=== PATIENT | female | born 1945 | race Caucasian/White ===

== ENCOUNTER 2016-05-26 22:12 | Inpatient (IN) | payer OTHER, MEDICARE ==
[~2016-05-26] VITALS: Ht 165.1 cm; Wt 65.5 kg
[~2016-05-26 22:12] MED LIST: NOMED
[2016-05-26 22:14] VITALS: BP 143/73; PULSE 88; RESP 16; O2SAT 99
--- NOTE | 2016-05-26 22:32 | ED.REPORT ---
HPI-General Illness Date of Service May 26, 2016 ED Provider: Glenn Clark MD Patient is a 70 year old female who presents to the ED after she developed dark diarrhea, dark vomiting, and abdominal pain 3 days ago. She describes the abdominal pain as cramping in her lower abdomen, which always precedes an episode of vomiting or diarrhea. Patient was nauseated for the next 2 days, and has only been able to drink small amounts of water before vomiting. Today the patient has not vomited or had a bowel movement. The patient states that emesis and diarrhea have always been dark, but she has not noted blood. Patient denies dizziness. The patient denies a history of heart burn and she has not previously had a gastric ulcer. The patient's called her PCP after these symptoms began, who ordered outpatient blood work. She was called today and was informed that she is very anemic and was told to present to the ED today for evaluation. Patient has previously had a hysterectomy, but denies prior cholecystectomy. Patient denies any right sided abdominal pain or fever. Nursing Notes Stated Complaint: ANEMIC Chief Complaint: General Complaint Nursing Notes Reviewed: Yes Allergies: Coded Allergies: No Known Allergies (Verified Allergy, Unknown, 05/26/16) Miscellaneous Medications No Historical Medication (No Historical Medication) Ea General Time Seen by MD: 22:32 Chief Complaint Abdominal pain, Diarrhea (dark), Vomiting (dark) Hx Obtained From: Patient Arrived By: Walk-in Sudden in Onset?: No Onset Occurred: 3 days ago Symptom Duration: Waxes and wanes Location: : Abdomen Quality: Cramping, Painful Severity: Current: Moderate Severity: Maximum: Moderate Recent Healthcare: No recent doctor visit, No recent hospitalization Similar Sx Previous: No Past Medical History Past Medical History arthritis Past Surgical History Reports: Hysterectomy, Denies: Cholecystectomy Smoking History Unknown if Ever Smoker Social History Admits to drinking wine daily since age 19, but has stopped drinking for the past few weeks. Alcohol Use: 1-3 per day Other Social History: Good social support, Local resident Ambulatory Status Independent Review of Systems Full Review of Systems Constitutional: Denies: Chills, Fever GI: Reports: Abdominal pain, Bloody/tarry stool, Diarrhea (dark), Nausea, Vomiting (dark) Neurologic: Denies: Dizziness Complete sys rev & neg: except as marked. Physical Exam Vital Signs Vital Signs Date Time Temp Pulse Resp B/P Pulse Ox O2 Delivery O2 Flow Rate FiO2 05/27/16 02:41 84 15 128/58 99 Room Air 05/26/16 22:14 36.6 88 16 143/73 99 Room Air Initial VS: Reviewed Extremities: Vascular intact, Neuro intact Neurologic: Alert, Oriented, Nonfocal Psychiatric: Mood/affect normal, Behavior normal, Normal thought content General/Constitutional: Awake, Alert, No acute distress Distress / Hydration: Positive: Dehydration mild Head / Eyes: Normocephalic, PERRL Conjunctiva / Sclera: Positive: Icteric ENT: Airway patent Mouth: Positive: Mucous membranes dry varicose veins on nose and other changes consistent with someone who drinks daily Neck: Supple, Full range of motion Respiratory / Chest: Breath sounds NL, Breath sounds = bilat, No respiratory distress, No rales, No rhonchi, No wheezing Cardiovascular: Heart rate NL, Regular rhythm, Heart sounds NL Abdomen: Soft, Non-tender, BS normoactive midline scar from hysterectomy Skin: Warm, Dry Interpretation & Diagnostics Lab Results Interpretation Result Diagram: 05/27/16 0515 05/27/16 0515 Test 05/26/16 23:05 05/26/16 23:15 05/26/16 23:25 Prothrombin Time 14.4sec (8.1-12.5) Prothromb Time International Ratio 1.34ratio Urine Color Dark yellow (YELLOW) Urine Appearance Hazy (CLEAR,HAZY) Urine pH 6.0 (5.0-8.0) Urine Specific [place] 1.010 (1.003-1.035) Urine Protein Negativemg/dL (NEG,TRACE) Urine Glucose (UA) Negativemg/dL (NEGATIVE) Urine Ketones Tracemg/dL (NEGATIVE) Urine Occult Blood Negative (NEGATIVE) Urine Nitrite Negative (NEGATIVE) Urine Bilirubin Small (NEGATIVE) Urine Ictotest Positive (Negative) Urine Urobilinogen 2.0mg/dL (NORMAL) Urine Leukocyte Esterase Moderate (NEGATIVE) Urine RBC 0-2/hpf (0-2) Urine WBC 6-10/hpf (0-5) Urine Epithelial Cells Moderate/hpf (NONE-MOD) Urine Crystals None seen (NONE SEEN) Urine Bacteria Few/hpf (NONE-FEW) Urine Hyaline Casts None/lpf (NONE) Urine Granular Casts None seen (NONE SEEN) Urine Waxy Casts None seen (NONE SEEN) Urine Red Blood Cell Casts None seen (NONE SEEN) Urine White Blood Cell Casts None seen (NONE SEEN) Urine Mucus None seen (None Seen) Urine Trichomonas None seen (NONE SEEN) Urine Yeast None (NONE SEEN) Urine Culture Reflexed Indicated Lactic Acid Level 1.9mmol/L (0.4-2.0) Magnesium Level 1.9mg/dL (1.6-2.6) Lipase 147U/L (13-60) Acetaminophen Level < 15.0ug/mL Rx (10-25) Alcohol, Quantitative < 10mg/dL (0-10) ECG Interpretation ECG Interpretation: Sinus rhythm, Rate 80 Time: 23:09 Interpreted by: ED physician Normal ECG Interpretation: No acute ischemic changes CT Abd / Pelvis Interpretation CONCLUSION: No acute findings. Colonic diverticulosis without evidence of acute diverticulitis. Heterogeneous nodular liver possible cirrhosis. Borderline splenomegaly. Radiologist: Elis Coelho MD 05/27/2016 - 1:35:32 AM PST Study type: Abdom CT oral contrast Interpretation / Wet Read by: Interpret - Radiologist Re-Eval/Medical Decision Med Decision/Clinical Course 70-year-old female with coffee-ground emesis and black stools presents anemic at the direction of her doctor. Her anemia is worsened with hydration here. She has no active diarrhea at present, no abdominal pain at present, but may have an ulcer or similar lesion in the upper tract, leading to melena. She is transfused from her low level hemoglobin of 6.8. She is transported now to the PCU for continued monitoring and transfusion. Discussed with GI who will see her this morning and consult Source of Hx: Old records Time of Eval: 03:15 Patient Status: Condition improved, Drinking well without N/V Re-Evaluation/Progress Note: Rechecked the patient, who was informed of the results of her CT scan. She was informed that there was evidence of cirrhosis of her liver. Patient admits that she typically drinks wine daily (since the age of 19), but she has stopped doing so recently. Patient states that she does not miss it. She was advised to stop drink alcohol. Patient was informed that she is very anemic and that she will need blood transfused and admitted to the hospital. Patient understands and agrees with this plan. All questions were addressed. Consultation #1: Referral / Consult Name: Zeenat Alonzo DO Consulted With: Hospitalist Call Returned at: 03:27 Commodity Director: Will see patient, Agrees with eval, Agrees with plan, Accepts admit Note: Spoke with Dr. Alonzo, hospitalist, who agrees to accept admit. Consultation #2: Referral / Consult Name: Janet Jauregui MD Consulted With: On-call physician (JARON) Call Returned at: 05:24 Commodity Director: Will see patient, Agrees with eval, Agrees with plan Note: Spoke with JARON Munroe, about the patient's case. He agrees to consult on the patient. Counseled Regarding: Diagnosis, Lab results, Need for admission Discharge & Departure Primary Impression: GI bleeding GI bleed type/associated pathology: unspecified gastrointestinal hemorrhage type Qualified Code: K92.2 - Gastrointestinal hemorrhage, unspecified Additional Impressions: Liver cirrhosis Hepatic cirrhosis type: alcoholic cirrhosis Ascites presence: without ascites Qualified Code: K70.30 - Alcoholic cirrhosis of liver without ascites Anemia requiring transfusions Disposition: ADMITTED TO HOSPITAL Discharge Condition All VS Reviewed: Yes Condition: Stable Referrals: Marina Fontaine PA-C (PCP) Mikie Attestation Portions of this note were transcribed by Haven Patrick. I, Dr. Clark personally performed the history, physical exam and medical decision-making; I reviewed and confirmed the accuracy of the information in the transcribed note. Signed by: Mikie Navarro, 05/26/2016 0524 copies to: Marina Fontaine PA-C, Christopher W MD May 26, 2016 22:32 Haven Patrick May 26, 2016 22:45 Creatinine 0.91mg/dL (0.57-1.00) Estimat Glomerular Filtration Rate 88mL/min (>59) Glucose Level 98mg/dL (60-99) Lactic Acid Level 1.9mmol/L (0.4-2.0) Calcium Level 9.1mg/dL (8.5-10.1) Magnesium Level 1.9mg/dL (1.6-2.6) Total Bilirubin 2.8mg/dL (0.0-1.2) Aspartate Amino Transf (AST/SGOT) 114U/L (0-50) Alanine Aminotransferase (ALT/SGPT) 40U/L (0-32) Alkaline Phosphatase 69U/L (25-165) Total Protein 7.3g/dL (6.4-8.4) Albumin 3.7g/dL (3.4-5.0) Lipase 147U/L (13-60) Acetaminophen Level < 15.0ug/mL Rx (10-25) Alcohol, Quantitative < 10mg/dL (0-10) Hemoglobin 6.3g/dL (12.0-15.6) Hematocrit 20.6% (35.0-46.0) ECG Interpretation ECG Interpretation: Sinus rhythm, Rate 80 Time: 23:09 Interpreted by: ED physician Normal ECG Interpretation: No acute ischemic changes CT Abd / Pelvis Interpretation CONCLUSION: No acute findings. Colonic diverticulosis without evidence of acute diverticulitis. Heterogeneous nodular liver possible cirrhosis. Borderline splenomegaly. Radiologist: Elis Coelho MD 05/27/2016 - 1:35:32 AM PST Study type: Abdom CT oral contrast Interpretation / Wet Read by: Interpret - Radiologist Re-Eval/Medical Decision Source of Hx: Old records Time of Eval: 03:15 Patient Status: Condition improved, Drinking well without N/V Re-Evaluation/Progress Note: Rechecked the patient, who was informed of the results of her CT scan. She was informed that there was evidence of cirrhosis of her liver. Patient admits that she typically drinks wine daily (since the age of 19), but she has stopped doing so recently. Patient states that she does not miss it. She was advised to stop drink alcohol. Patient was informed that she is very anemic and that she will need blood transfused and admitted to the hospital. Patient understands and agrees with this plan. All questions were addressed. Consultation #1: Referral / Consult Name: Zeenat Alonzo DO Consulted With: Hospitalist Call Returned at: 03:27 Commodity Director: Will see patient, Agrees with eval, Agrees with plan, Accepts admit Note: Spoke with Dr. Alonzo, hospitalist, who agrees to accept admit. Consultation #2: Referral / Consult Name: Janet Jauregui MD Consulted With: On-call physician (GI) Call Returned at: 05:24 Commodity Director: Will see patient, Agrees with eval, Agrees with plan Note: Spoke with Dr. Jauregui GI, about the patient's case. He agrees to consult on the patient. Counseled Regarding: Diagnosis, Lab results, Need for admission Discharge & Departure Primary Impression: GI bleeding GI bleed type/associated pathology: unspecified gastrointestinal hemorrhage type Qualified Code: K92.2 - Gastrointestinal hemorrhage, unspecified Additional Impressions: Liver cirrhosis Hepatic cirrhosis type: alcoholic cirrhosis Ascites presence: without ascites Qualified Code: K70.30 - Alcoholic cirrhosis of liver without ascites Anemia requiring transfusions Disposition: ADMITTED TO HOSPITAL Discharge Condition All VS Reviewed: Yes Condition: Stable Referrals: Marina Fontaine PA-C (PCP) Mikie Attestation Portions of this note were transcribed by Haven Patrick. I, Dr. Clark personally performed the history, physical exam and medical decision-making; I reviewed and confirmed the accuracy of the information in the transcribed note. Signed by: Mikie Navarro, 05/26/2016 0524 copies to: Marina Fontaine PA-C, Christopher W MD May 26, 2016 22:32 Haven Patrick May 26, 2016 22:45
[2016-05-26] MEDS ORDERED: 0.9% Sodium Chloride 1,000 ML IV ONE (22:48)
[2016-05-26] MEDS ORDERED: Ondansetron 2 mg/mL 2 mL Inj IVPUSH ONE (22:50)
[2016-05-26] MEDS ORDERED: Pantoprazole 4 mg/mL 10 mL Inj IVPUSH ONE (22:50)
[2016-05-26] MEDS ORDERED: Iohexol 300 mg/mL 30 mL Inj PO ONE (22:50)
[2016-05-26 23:35] LABS: BASOPHILS % (AUTO) 0.7 % (0-3); EOSINOPHILS % (AUTO) 1.2 % (0-5); MONOCYTES % (AUTO) 16.5 % (4-12); Mean Corpuscular Hemoglobin 24.9 pg (27.0-35.0); Mean Corpuscular Volume 81.7 fL (81-100); NEUTROPHILS % (AUTO) 55.4 % (40-74); Platelet Count 192 bil/L (150-400)
[2016-05-26 23:50] LABS: INR 1.34 ratio
[2016-05-26 23:57] LABS: APPEARANCE,URINE HAZY (CLEAR,HAZY); COLOR,URINE DARK YELLOW (YELLOW); ICTOTEST,URINE POSITIVE (Negative); OCCULT BLOOD,URINE NEGATIVE (NEGATIVE)
[2016-05-27] VITALS (14 sets, daily range): BP systolic 119–146; BP diastolic 55–82; PULSE 66–93; RESP 11–22; O2SAT 96–100
[2016-05-27 00:11] LABS: Lipase 147 U/L (13-60); Magnesium 1.9 mg/dL (1.6-2.6)
[2016-05-27] MEDS ORDERED: Polyethylene Glycol (PEG) 17 Gm Powder PO PRN (03:30)
[2016-05-27] MEDS ORDERED: Pantoprazole Inj 80 MG, Pharmacy To Mix 1 EA in 0.9% Sodium Chloride 80 ML IV ONE ×2 (03:30)
[2016-05-27] MEDS ORDERED: Alum-Mag Hydrox-Simeth 30 mL Suspension PO PRN (03:30)
[2016-05-27] MEDS ORDERED: Ondansetron 2 mg/mL 2 mL Inj IVPUSH PRN (03:30)
[2016-05-27] MEDS ORDERED: Pantoprazole Inj 80 MG in 0.9% Sodium Chloride 80 ML IV SCH ×2 (03:35→04:40)
[2016-05-27] MEDS: 0.9% Sodium Chloride 250 ML IV SCH (03:48)
--- NOTE | 2016-05-27 04:40 | PCM.HPMED ---
Subjective Date of Service May 27, 2016 Primary Provider: Admitting Physician: Primary Care Physician: Marina Fontaine PA-C Attending Physician: Admit Status: From the Emergency Department, [facility] Telemetry Chief Complaint: Anemia History of Present Illness: Patient is a 70 year old female who presents to the ED after she developed dark diarrhea, dark vomiting, and abdominal pain 3 days ago. She describes the abdominal pain as cramping in her lower abdomen, which always precedes an episode of vomiting or diarrhea. Patient was nauseated for the past 2 days, and has only been able to drink small amounts of water before vomiting. Today the patient has not vomited or had a bowel movement. The patient states that emesis and diarrhea have always been dark, but she has not noted bright red blood. Patient denies dizziness. The patient denies a history of heart burn and she has not previously had a gastric ulcer. PCP ordered labs at visit on 05/26/16, and called back last night with results of the low blood count, advising them to go to the ED for further evaluation. Patient has previously had a hysterectomy, but denies prior cholecystectomy. Patient denies any right sided pain, abdominal pain, palpitations, SOB, fevers or chills. No history of similar events in the past, does not take NSAIDs. In the ED, vitals T36.6, P88, RR16, BP143/73, 99%RA. Labs significant for Hgb 7.2 came down to 6.2, Hct 23.6 down to 20.6 during the time in ED. AST/ALT 114/ 40, Lipase 147. Na 133, K3.1. CT abd showed "No acute findings. Colonic diverticulosis without evidence of acute diverticulitis. Heterogeneous nodular liver possible cirrhosis. Borderline splenomegaly." Patient given 80mg IV pantoprazole. Transfused 2 units of PRBC due to acute H/H drop. Admitted for further evaluation and treatment. Review of Systems: Comprehensive ROS reviewed and negative otherwise noted on HPI. Allergies Coded Allergies: No Known Allergies (Verified Allergy, Unknown, 05/26/16) Home Medications None PMH osteo arthritis of neck Surgical History Hysterectomy bone spur off heel Family History Father of emphysema Mother with DM2 Social History Hx Alcohol Use: Yes Alcoholic Drinks Per Day: 2-3 glasses of wine a day since 19yo, quit during 2 pregnancies Hx Substance Use: No Hx Tobacco Use: Yes Smoking Status: Former Smoker (5 years 50 years ago) Living Arrangement: with Family (in [place]) Exam Vital Signs Vital Sign - Last Date Time Temp Pulse Resp B/P Pulse Ox O2 Delivery O2 Flow Rate FiO2 05/27/16 02:41 84 15 128/58 99 Room Air 05/26/16 22:14 36.6 Intake and Output 05/26/16 05/26/16 05/27/16 Cumulative From/Thru 15:00 23:00 07:00 05/26/16 22:14 - 05/26/16 23:44 Intake Total 1000 ml 1000 ml Balance 1000 ml 1000 ml Intake IV Total 1000 ml 1000 ml Exam GEN: Alert and oriented x3, NAD, appears younger than stated age HEENT: NC/AT, PERRL, EOMI, icteric sclera, moist mucous membranes, poor dentition Neck: Supple with full ROM CV: RRR, no murmurs, rubs or gallops, peripheral pulses intact and NL Lungs: CTAB, normal breath sounds bilaterally Abd: soft, non-tender, no organomegaly, no fluid wave, no spider angiomas Ext: no edema, cyanosis, or clubbing, no asterixis Skin: no jaundice or redness of palms, no ecchymosis Neuro: CN II-XII grossly intact, no focal deficit Psych: Normal mood and affect, normal speech Lab and Diagnostics Result Diagram: 05/27/16 0240 05/26/16 2325 X-Rays, CTs and MRIs CONCLUSION: No acute findings. Colonic diverticulosis without evidence of acute diverticulitis. Heterogeneous nodular liver possible cirrhosis. Borderline splenomegaly. Radiologist: Elis Coelho MD 05/27/2016 - 1:35:32 AM [facility] Study type: Abdom CT oral contrast Interpretation / Wet Read by: Interpret - Radiologist 12-lead ECG ECG Interpretation: Sinus rhythm, Rate 80 Time: 23:09 Interpreted by: ED physician Normal ECG Interpretation: No acute ischemic changes Assessment & Plan Patient is a 70 year old female who presents to the ED after she developed dark diarrhea, dark vomiting, and abdominal pain 3 days ago. She describes the abdominal pain as cramping in her lower abdomen, which always precedes an episode of vomiting or diarrhea. Found to be anemic on recent labs, sent to ED by PCP. Upper GI bleed, present on admission. Acute. - most likely to be from esophageal varices, although cannot rule out PUD, gastritis, portal hypertensive gastropathy, angiodysplasias - 2 units of PRBC given, PPI started in ED - PPI and octreotide ggt - check H/H Q6H - transfuse if Hgb <7, maintain Hbg between 7-8 - telemetry - NPO - patient does not have ascites, or abdominal pain, will hold off prophylactic antibiotics for possible SBP - GI to see patient in am Elevated liver enzymes, present on admission. - AST more than double ALT, most likely to be from alcoholic hepatitis, cannot rule out other liver etiologies (i.e. viral hepatitis, ARREDONDO, autoimmune) - Hepatitis panel pending - CMP in am Anion gap metabolic acidosis, present on admission. - AG 16, Lactic acid normal - most likely due to ketoacidosis from alcohol abuse Hypokalemia, present on admission. - K 3.1, currently transfusing 2 units of PRBC, will recheck in am Possible cirrhosis visualized on CT, present on admission. - Child-Nayak score of 6, Class A, MELD score of 17, Discriminant Function score of 13.8 with good prognosis, no steroid needed Mildly elevated lipase, present on admission. - most likely due to chronic pancreatitis with alcohol use Alcoholism, chronic - patient states she has not been drinking her usual 3 glasses of wine for the past 2-3 weeks, serum alcohol level <10, CIWA deemed not necessary at this time - discussed cessation - monitor for alcohol withdrawal Osteoarthritis of neck - patient does not take any medication for this PRNs - avoid APAP - Bowel regimen as needed - Antiemetic as needed Patient admitted under inpatient status with expected length of stay greater than 2 midnights due to severity of presenting symptoms, risk of adverse event, and complexity of treatment plan. Pain Evaluation: Adequate Pain Control GI Prophylaxis: Proton Pump Inhibitor VTE Prophylaxis: SCDs, Other (GI bleed) Resuscitation Status: CPR: Attempt Resuscitation Attending Statement The patient was seen and examined together with house staff on 05/27/2016 and I agree with the history, exam and plan as outlined in the note above. Isa Domingo DO May 27, 2016 03:34 Zeenat Alonzo DO May 27, 2016 06:16
[2016-05-27] MEDS ORDERED: Octreotide Inj 500 MCG in 0.9% Sodium Chloride 99 ML IV SCH (05:00)
[2016-05-27 05:27] LABS: BASOPHILS % (AUTO) 0.7 % (0-3); MONOCYTES % (AUTO) 17.8 % (4-12); Mean Corpuscular Hemoglobin 26.5 pg (27.0-35.0); Mean Corpuscular Volume 81.8 fL (81-100); NEUTROPHILS % (AUTO) 53.9 % (40-74); Platelet Count 164 bil/L (150-400)
[2016-05-27] MEDS ORDERED: [UNRECOGNIZED DRUG - OTHER] IV ONE (06:25)
[2016-05-27] MEDS ORDERED: KCL IV ONE (06:25)
--- NOTE | 2016-05-27 06:34 | NUR ---
Admission Pt transferred from the ED at 0530. Report taken from CHARISMA Mukherjee. Pt alert and oriented x3. Able to transfer independently from w/c to bed. Nursing assessment unremarkable. Two patent IV accesses in the left arm. Pt received two units of PRBC. Full admission completed. Pt accompanied by spouse. All questions answered.
[2016-05-27] MEDS ORDERED: KCl 20 mEq/250 mL D5W (Peripheral Line) IV ONE ×2 (08:20)
--- NOTE | 2016-05-27 08:21 | DRSVH ---
PROCEDURE: CT ABDOMEN AND PELVIS WITH CONTRAST ([id number]) INDICATIONS: nausea, hematemesis, jaundice TECHNIQUE: After the administration of oral and intravenous contrast, 5 mm thick sections acquired from the diap hragms to the symphysis. 5 mm thick coronal and sagittal reformats were performed. For radiation do se reduction, the following was used: automated exposure control, adjustment of mA and/or kV accordi ng to patient size. COMPARISON: None. FINDINGS: Image quality: Excellent. ABDOMEN: Lung bases: Lung bases are clear. Heart size is normal. Solid organs: Liver and spleen are normal in enhancement. Liver has nodular margins suggesting hepat ic cirrhosis; please correlate with clinical and laboratory data. Spleen is mildly enlarged measuring 13.1 cm in the longitudinal axis. Small venous varices noted adjacent to the splenic hilum suggestin g portal hypertension. Gallbladder is within normal limits. Biliary system is non-dilated. Pancreas enhances normally. No adrenal nodules. Kidneys are normal in size and enhancement, without hydrone phrosis. Peritoneum and bowel: Stomach, small bowel, and colon loops are normal in caliber and wall thickness . Scattered diverticuli noted in the colon without evidence of diverticulitis. No free fluid or air. The appendix is normal. Nodes and vessels: No retroperitoneal or mesenteric adenopathy. Aorta and inferior vena cava are no rmal in caliber. Scattered atherosclerotic calcifications in the abdominal pelvic vasculature. Miscellaneous: No ventral hernias. PELVIS: Genitourinary: Bladder wall thickness is normal. Miscellaneous: No inguinal hernias or adenopathy. Bones: No suspicious bony lesions. No vertebral body compression fractures. Spine degenerative disc disease and facet arthropathy are noted. Convex left curvature of the lumbar spine is noted. IMPRESSION: 1. Nodular liver suggesting hepatic cirrhosis. Please correlate with clinical laboratory findings. 2. Mild splenomegaly. 3. Prominent venous varices at the splenic hilum and adjacent to the gastroesophageal junction concer julito for sequela of portal hypertension. Dictated by: Marcela Ng MD, PhD on 05/27/2016 at 8:15 Approved by: Marcela Ng MD, PhD on 05/27/2016 at 8:20
[2016-05-27] MEDS: cefTRIAXone Inj 2,000 MG in Dextrose 5% Minibag Plus 50 ML IV SCH (09:22)
--- NOTE | 2016-05-27 12:22 | PCM.PNMED ---
Subjective Date of Service May 27, 2016 Subjective Alicja Shi is a 70 year old female who presents to the ED after she developed dark diarrhea, dark vomiting, and abdominal pain 3 days ago. Found to be anemic on recent labs and sent to the ED by PCP. Admitted for upper GI bleed. Hospital day 2. Overnight: Patient was admitted overnight and started on octreotide and Protonix drip. She received 2 units PRBCs with appropriate improvement in her hemoglobin and hematocrit. Rested comfortably. Today: Patient denies any pain, nausea, vomiting, abdominal pain, dizziness, or symptoms of heartburn. Patient has not eaten since admission. EGD planned for this afternoon. Remaining review of systems negative. Exam Vital Signs Vital Sign - Last Date Time Temp Pulse Resp B/P Pulse Ox O2 Delivery O2 Flow Rate FiO2 05/27/16 05:53 88 05/27/16 05:17 36.4 22 146/73 99 Room Air Intake and Output 05/26/16 05/26/16 05/27/16 Cumulative From/Thru 15:00 23:00 07:00 05/26/16 22:14 - 05/27/16 06:09 Intake Total 1000 ml 1000 ml Output Total 0 ml 0 ml Balance 1000 ml 1000 ml Intake Oral 0 ml 0 ml IV Total 1000 ml 1000 ml Output Urine Total 0 ml 0 ml Exam GEN: Alert and oriented x3, NAD, appears younger than stated age HEENT: NC/AT, PERRL, EOMI, icteric sclera, moist mucous membranes, poor dentition Neck: Supple with full ROM CV: RRR, no murmurs, rubs or gallops, peripheral pulses intact and NL Lungs: CTAB, normal breath sounds bilaterally Abd: soft, non-tender, no organomegaly, no fluid wave, no spider angiomas Ext: no edema, cyanosis, or clubbing, no asterixis Skin: no jaundice or redness of palms, no ecchymosis Neuro: CN II-XII grossly intact, no focal deficit Psych: Normal mood and affect, normal speech Lab and Diagnostics Result Diagram: 05/27/1651405/27/16514 X-Rays, CTs and MRIs CONCLUSION: No acute findings. Colonic diverticulosis without evidence of acute diverticulitis. Heterogeneous nodular liver possible cirrhosis. Borderline splenomegaly. Radiologist: Elis Coelho MD 05/27/2016 - 1:35:32 AM [facility] Study type: Abdom CT oral contrast Interpretation / Wet Read by: Interpret - Radiologist 12-lead ECG Sinus rhythm, Rate 80 Assessment & Plan Alicja Shi is a 70 year old female who presents to the ED after she developed dark diarrhea, dark vomiting, and abdominal pain 3 days ago. Found to be anemic on recent labs and sent to the ED by PCP. Admitted for upper GI bleed. Hospital day 2. 1. Upper GI bleed, present on admission. Active. - Etiology is likely esophageal varices, although cannot rule out PUD, gastritis , portal hypertensive gastropathy, angiodysplasias - On admission hemoglobin and hematocrit 6.3 and 20.6. - 2 units of PRBC given overnight between 05/26-05/27 - Protonix drip per protocol. - Octreotide drip per protocol. - H/H stable this morning at 9.8 and 30.1. - Transfuse if Hgb <7, maintain Hbg between 7-8 - Continue to monitor on telemetry. - Patient to remain NPO. EGD planned for this afternoon. - Ceftriaxone started 05/27 for prophylaxis. - Gastroenterology consulted. Appreciate time and recommendations. 2. Elevated liver enzymes, present on admission. Unknown chronicity. - AST more than double ALT, most likely to be from alcoholic hepatitis, cannot rule out other liver etiologies (i.e. viral hepatitis, ARREDONDO, autoimmune) - Hepatitis panel pending. - Repeat CMP in the morning. 3. Hypokalemia, present on admission. active. - On admission potassium 3. 1 repeat this morning 3.5. - Potassium IV rider ordered. - Repeat CMP in the morning. 4. Possible cirrhosis visualized on CT, present on admission. - Child-Nayak score of 6, Class A, MELD score of 17, Discriminant Function score of 13.8 with good prognosis, no steroid needed - Will need outpatient follow-up. 5. Mildly elevated lipase, present on admission. - On admission lipase 147. - Most likely due to chronic pancreatitis with alcohol use. - Patient denies abdominal pain. 6. Alcohol use disorder, present on admission. Chronic. - Patient states she has not been drinking her usual 3 glasses of wine for the past 2-3 weeks, serum alcohol level <10, CIWA deemed not necessary at this time. - Discussed cessation. - Monitor for alcohol withdrawal. 7. Osteoarthritis of neck - Patient does not take any medication for this PRNs - avoid APAP - Bowel regimen as needed - Antiemetic as needed Disposition: Hemoglobin and hematocrit stable after transfusion. EGD planned for this afternoon. Discharge pending results and further treatment. GI Prophylaxis: Proton Pump Inhibitor (Protonix drip) VTE Prophylaxis: SCDs, Other (GI bleed) VTE Mechanical Devices: Intermittant Pneumatic CD Resuscitation Status: CPR: Attempt Resuscitation Attending Statement patient seen and examined with Dr Brumfield,I agree with history,exam ,assessment and plan as outlined above DAYANA BRUMFIELD DO May 27, 2016 07:28 Jer Ramirez MD May 27, 2016 13:54
--- NOTE | 2016-05-27 13:00 | NUR ---
To endo pt ordered for endoscopy. pt agreeable. pt transported via gurney. telemetry notified. pt left unit at 1302.
[2016-05-27] MEDS: Lactated Ringer's 1,000 ML IV ONE ×2 (13:04→13:29)
--- NOTE | 2016-05-27 13:06 | PCM.HPANE ---
Patient Data Date of Service: May 27, 2016 Surgeon Admitting Provider:Zeenat Alonzo DO Attending Provider:Zeenat Alonzo DO Primary Care Physician:Marina Fontaine PA-C Other Provider: Reason for Visit Upper Gi Bleeding Ht/WT & BMI Height (Feet): 5 Height (Inches): 5.00 Weight (Kilograms): 65.450 Body Mass Index 24.04 Allergies Coded Allergies: No Known Allergies (Verified Allergy, Unknown, 05/26/16) Past Anesthesia History Anesthesia History: Denies:: Anesthesia Reactions Diabetes History Hx Diabetes?: No MRSA MRSA: No Medications Reported Medications No Historical Medication Ea 09/08/10 History History of ENT Problems?: No HEENT History: Positive for:: Cataracts (surgery) Denies:: Dysphagia Glaucoma Hearing Problem Sinus Problem Hx of Heart Problems?: No Cardiovascular History: Denies:: Cardiac Surgery Chest Pain Congestive Heart Failure Edema Heart Murmur Hypertension Irregular Heartbeat Pacemaker Thrombophlebitis Hx of Respiratory Problem?: No Respiratory History: Denies:: Asthma COPD Chest Surgery Dyspnea Emphysema Hemoptysis Pneumonia Tuberculosis Hx Neurologic Problems?: No Neurological History: Denies:: Alzheimer's Disease CVA Dementia Dizziness Headaches Parkinson's Disease Seizures Hx of GI Problems?: Yes Gastrointestinal History: Positive for:: Gastrointestinal Bleeding (suspicious , current chief complaint) Denies:: Diverticulitis Gastroesphageal Reflux Heartburn Hepatitis Hiatal Hernia Rectal Bleeding (post colonoscopy years prior) Hx of Problems?: No Genitourinary History: Denies:: HX of Hemodialysis Kidney Stones Urinary Tract Infection HX of Peritoneal Dialysis: No Female Hx: Denies:: Currently Endometriosis Pelvic Inflammatory Problems with Breasts? Skin History: Denies:: History Skin Disorders? Hx Musculoskeletal Problems?: No Musculoskeletal History: Denies:: Back Injury Joint Replacement Musculoskeletal Trauma Hx of Psycho/Social Problems?: No Psycho Social History: Denies:: Anxiety Bipolar Disorder Hx Depression Suicide Attempt Hx Surgeries?: Yes Hx Any Other Health Problems?: No Other History: Positive for:: Hospitalization (hysterectomy, bone spur surgery ) Denies:: Cancer Endocrine Disease Thyroid Disease History Blood Transfusions: Positive for:: Accept Blood Products? Blood Transfusions Denies:: Blood Transfuse Reaction Hx Diabetes: No Hx Alcohol Use: Yes (couple of glasses of wine per night)Alcoholic Drinks Per Day: 2-3 glasses of wine a day since 19yo, quit during 2 pregnancies Hx Substance Use: No Smoking Status: Former Smoker (5 years 50 years ago) Have You Smoked inLast 12 mo: No Stop/Bang Treated for Sleep Apnea?: No Do You Have a CPAP Machine?: No S-Snoring: Do You Snore Loudly: Yes T-Tired: feel tired, fatigued: No O-Obsered: Observed not breath: No P-Blood Pressure: treated: No B- Body Mass Index > 35 kg/m2: No A- Age over 50: Yes N- Neck Large Circumference: No G- Gender Male: No NIGHAT Total Score: 1 NIGHAT Risk Assessment: Low Risk, <3 Yes Risk Assessment Category Category 1A: Patient has history of documented sleep apnea, and HAS NOT received any narcotic, sedative or anesthesia administration during this stay. Category 1B: Patient has history of documented sleep apnea, and HAS received any narcotic , sedative or anesthesia administration during this stay Category 2: Patient has SUSPECTED Obstructive Sleep Apnea, and HAS received any narcotic , sedative or anesthesia administration during this stay. Category 3: Patient has SUSPECTED Obstructive Sleep Apnea and HAS NOT received narcotic, sedative or anesthesia administration during this stay. Category 4: Outpatient in Procedural Areas with known sleep apnea or who screen positive for High Risk via the STOP/BANG questionnaire. Exam Exam Vital Signs Vital Signs Date Time Temp Pulse Resp B/P Pulse Ox O2 Delivery O2 Flow Rate FiO2 05/27/16 11:58 37.0 70 18 131/69 96 Room Air 05/27/16 10:11 87 05/27/16 07:28 36.9 93 16 139/78 100 Room Air 05/27/16 05:53 88 05/27/16 05:17 36.4 88 22 146/73 99 Room Air 05/27/16 05:15 36.4 88 20 146/73 General Appearance: Alert, Oriented X3, Cooperative HEENT/AIRWAY: MP 2, Neck Movement (Full), Mouth Opening (Wide) Lungs: Clear to Auscultation, Normal Air Movement Heart: Regular Rate/Rhythm, Normal S1, Normal S2 Meds/Labs/Diagnostics Admission Meds Current Medications Sodium Chloride (Normal Saline) 1,000 ml @ 0 mls/hr Q0M ONCE IV Last administered on 05/26/16t 23:44; Start 05/26/16 at 22:48; Stop 05/26/16 at 22:53; Status DC Pantoprazole (Protonix Inj) 80 mg ONCE ONCE IVPUSH Last administered on 23:44; Start 05/26/16 at 22:50; Stop 05/26/16 at 22:53; Status DC Ondansetron HCl (Zofran Inj) 8 mg ONCE ONCE IVPUSH Last administered on 23:44; Start 05/26/16 at 22:50; Stop 05/26/16 at 22:53; Status DC Iohexol 9000 mg 9,000 mg ONCE ONCE PO Last administered on 05/26/16 23:44; Start 05/26/16 at 22:50; Stop 05/26/16 at 22:53; Status DC Sodium Chloride 250 ml @ 10 mls/hr Q24H IV Last administered on 05/27/16 03:48 ; Start 05/27/16 at 03:10 Pantoprazole/ Miscellaneous/ Sodium Chloride (Protonix Inj/ Pharmacy To Mix/ Normal Saline) 100 ml @ 10 mls/hr ONCE ONCE IV Last administered on 05/27/16 04:23; Start 05/27/16 at 03:30; Stop 05/27/16 at 13:29 Octreotide Acetate 50 mcg 50 mcg ONCE ONCE IVPUSH Last administered on 04:24; Start 05/27/16 at 03:30; Stop 05/27/16 at 03:32; Status DC Pantoprazole 80 mg/Sodium Chloride 100 ml @ 10 mls/hr Q10H IV Last administered on 05/27/16 03:35; Start 05/27/16 at 03:35 Octreotide Acetate 500 mcg/ Sodium Chloride 100 ml @ 10 mls/hr Q10H IV Last administered on 05/27/16 06:02; Start 05/27/16 at 05:00 Ceftriaxone Sodium 2000 mg/ Dextrose/Water 50 ml @ 100 mls/hr Q24H IV Last administered on 05/27/16 09:22; Start 05/27/16 at 08:00 Potassium Chloride/Dextrose/ Water (Potassium Chloride Inj/D5W) 260 ml @ 130 mls/hr ONCE ONCE IV Last administered on 05/27/16 09:22; Start 05/27/16 at 08: 20; Stop 05/27/16 at 10:19; Status DC Labs Test 05/26/16 23:05 05/26/16 23:15 05/26/16 23:25 05/27/16 05:15 Prothrombin Time 14.4sec (8.1-12.5) Prothromb Time International Ratio 1.34ratio Urine Color Dark yellow (YELLOW) Urine Appearance Hazy (CLEAR,HAZY) Urine pH 6.0 (5.0-8.0) Urine Specific [place] 1.010 (1.003-1.035) Urine Protein Negativemg/dL (NEG,TRACE) Urine Glucose (UA) Negativemg/dL (NEGATIVE) Urine Ketones Tracemg/dL (NEGATIVE) Urine Occult Blood Negative (NEGATIVE) Urine Nitrite Negative (NEGATIVE) Urine Bilirubin Small (NEGATIVE) Urine Ictotest Positive (Negative) Urine Urobilinogen 2.0mg/dL (NORMAL) Urine Leukocyte Esterase Moderate (NEGATIVE) Urine RBC 0-2/hpf (0-2) Urine WBC 6-10/hpf (0-5) Urine Epithelial Cells Moderate/hpf (NONE-MOD) Urine Crystals None seen (NONE SEEN) Urine Bacteria Few/hpf (NONE-FEW) Urine Hyaline Casts None/lpf (NONE) Urine Granular Casts None seen (NONE SEEN) Urine Waxy Casts None seen (NONE SEEN) Urine Red Blood Cell Casts None seen (NONE SEEN) Urine White Blood Cell Casts None seen (NONE SEEN) Urine Mucus None seen (None Seen) Urine Trichomonas None seen (NONE SEEN) Urine Yeast None (NONE SEEN) Urine Culture Reflexed Indicated Lactic Acid Level 1.9mmol/L (0.4-2.0) Magnesium Level 1.9mg/dL (1.6-2.6) Lipase 147U/L (13-60) Acetaminophen Level < 15.0ug/mL Rx (10-25) Alcohol, Quantitative < 10mg/dL (0-10) White Blood Count 5.7th/mm3 (3.8-10.1) Red Blood Count 3.74mil/mm3 (3.90-5.20) Mean Corpuscular Volume 81.8fL (81-100) Mean Corpuscular Hemoglobin 26.5pg (27.0-35.0) Mean Corpuscular Hemoglobin Concent 32.4% (32.0-37.0) Red Cell Distribution Width 17.2% (12.3-15.4) Platelet Count 164bil/L (150-400) Neutrophils (%) (Auto) 53.9% (40-74) Lymphocytes (%) (Auto) 26.4% (14-46) Monocytes (%) (Auto) 17.8% (4-12) Eosinophils (%) (Auto) 1.0% (0-5) Basophils (%) (Auto) 0.7% (0-3) Sodium Level 132mEq/L (134-144) Potassium Level 3.5mEq/L (3.5-5.2) Chloride Level 95mEq/L (97-108) Carbon Dioxide Level 21mmol/L (18-29) Blood Urea Nitrogen 20mg/dL (8-27) Creatinine 0.86mg/dL (0.57-1.00) Estimat Glomerular Filtration Rate 94mL/min (>59) Glucose Level 89mg/dL (60-99) Calcium Level 8.8mg/dL (8.5-10.1) Phosphorus Level 5.1mg/dL (2.5-4.9) Total Bilirubin 3.3mg/dL (0.0-1.2) Aspartate Amino Transf (AST/SGOT) 114U/L (0-50) Alanine Aminotransferase (ALT/SGPT) 38U/L (0-32) Alkaline Phosphatase 66U/L (25-165) Total Protein 7.1g/dL (6.4-8.4) Albumin 3.5g/dL (3.4-5.0) Test 05/27/16 08:15 Hemoglobin 9.8g/dL (12.0-15.6) Hematocrit 30.1% (35.0-46.0) Plan Impression Patient chart reviewed, patient interviewed and anesthestic plan with risks, benefits, and alternatives discussed, and informed consent obtained. NPO Status: > 8 hours ASA Physical Status: ASA2 Mod Systemic Disease Anesthetic Plan: MAC Bene/Risks/Altern/Consents: Yes HP Complete Prior to Induction: Yes Abdirahman Lorenzo MD May 27, 2016 12:51
--- NOTE | 2016-05-27 13:27 | PCM.ANEP1 ---
Post Anesthesia Phase 1 PACU Phase 1 Assessment Date of Service: May 27, 2016 Vital Signs See anesthetic record for Phase 2 vitals Vital Signs Date Time Temp Pulse Resp B/P Pulse Ox O2 Delivery O2 Flow Rate FiO2 05/27/16 13:08 84 16 146/82 99 Room Air 05/27/16 11:58 37.0 70 18 131/69 96 Room Air 05/27/16 10:11 87 05/27/16 07:28 36.9 93 16 139/78 100 Room Air 05/27/16 05:53 88 Anesthetic Administered: MAC CORTEZ's with Equal Strength: Yes Pain: No Nausea or Vomiting: No Oxygen Delivery: Nasal Cannula Lungs: Normal Air Movement Abdirahman Lorenzo MD May 27, 2016 13:27
--- NOTE | 2016-05-27 13:28 | PCM.ANEP2 ---
Post Anesthesia Evaluation ASA/CMS Post Anesthesia Date of Service: May 27, 2016 VS in Patient's Normal Range?: Yes Resp Stable; Airway Patent?: Yes CV Function & Hydration Stable: Yes Mental Status Recovered?: Yes Pain control Satisfactory?: Yes N/V Control Satisfactory?: Yes Abdirahman Lorenzo MD May 27, 2016 13:28
--- NOTE | 2016-05-27 13:50 | NUR ---
Return from Endo pt return to room 2008, alert and oriented. denies pain. at bedside. telemetry informed of return.
--- NOTE | 2016-05-27 13:59 | ENDO ---
[address] [address] ENDOSCOPY PROCEDURE PATIENT: SERG BRUSH : 1945 MR#: [id number] ADMIT: 05/27/2016 JOB ID: [id number] PROCEDURE: Esophagogastroduodenoscopy. INDICATION: Hematemesis and melena. ANESTHESIA: Please see anesthesia report for details regarding patient's ASA classification, Mallampati score, and medications. INSTRUMENT USED: GIF H 180 J. PROCEDURE DETAILS: After informed consent was obtained, the patient was brought into the GI suite where she was placed on oxygen via nasal cannula and monitored with continuous pulse oximeter, telemetry, and blood pressure monitoring. A time-out was performed, then she was placed in the left lateral decubitus position and medications were administered for sedation. A bite block was placed and then the standard esophagogastroduodenoscopy scope was inserted through the bite block and advanced under direct visualization to the second portion of the duodenum without difficulty. FINDINGS: 1. Normal appearing duodenal bulb, first and second portion. No old or fresh blood was seen on exam. 2. Normal appearing pylorus. In the antrum, at the nine o'clock and at the 3 o'clock position, there were 2 superficial ulcers that measured approximately 3-4 mm each with exudate. Exudate was removed with irrigation. The ulcers were clean based. Multiple biopsies were obtained from the ulcer sites. 3. The mucosa otherwise in the antrum and body of the stomach had a mosaic appearance, consistent with portal gastropathy. 4. Retroflexed views in the gastric body revealed a normal-appearing cardia and fundus. No gastric varices were appreciated. 5. Multiple random biopsies were obtained throughout the antrum and body of the stomach. 6. The GE junction was at approximately 41 cm and was irregular. There was surrounding erythema suggestive of esophagitis which appeared to be mild to moderate. The remainder of the esophagus was otherwise unremarkable. No esophageal varices were appreciated. IMPRESSION: 1. Two superficial antral ulcers. 2. Portal gastropathy. 3. Mild to moderate esophagitis with an irregular gastroesophageal junction. RECOMMENDATIONS: 1. Avoid NSAIDs and anticoagulants. 2. Continue PPI for 12 weeks. 3. Recommend repeat EGD in 12 weeks. 4. Recommend chronic liver disease workup to rule out other etiologies for the patient's underlying cirrhosis. 5. Alcohol cessation. 6. Await biopsy results. COMPLICATIONS: None. ESTIMATED BLOOD LOSS: Less than 5 mL. MTDD
[2016-05-27] MEDS ORDERED: Lidocaine PF 1% 30 mL Inj ONE (14:56)
[2016-05-27] MEDS ORDERED: Propofol 10,000 mCg/mL 20 mL Inj ONE (14:56)
--- NOTE | 2016-05-27 16:31 | NUR ---
Social work - Brief note Alicja Shi is a 70 yr old admitted for GI bleed. EMR reviewed: Pt has [employer], PCP is Marina Fontaine PA-C. [employer] attempted to meet with pt - pt off floor for endoscopy. Pt is independent at baseline - lives with [place]. EMR identifies that she drinks ETOH daily, has cirrhosis and will need CD assessment for alcohol treatment. [employer] will continue to follow Plan: Home with TOMI Newman
[2016-05-28 00:38] VITALS: BP 138/80; PULSE 71; RESP 16; O2SAT 98
[2016-05-28 02:58] LABS: BASOPHILS % (AUTO) 1.2 % (0-3); EOSINOPHILS % (AUTO) 1.9 % (0-5); MONOCYTES % (AUTO) 17.1 % (4-12); Mean Corpuscular Hemoglobin 26.1 pg (27.0-35.0); Mean Corpuscular Volume 82.4 fL (81-100); NEUTROPHILS % (AUTO) 44.1 % (40-74); Platelet Count 152 bil/L (150-400)
[2016-05-28] MEDS: 0.9% Sodium Chloride 250 ML IV SCH (03:10)
[2016-05-28 03:19] LABS: INR 1.44 ratio
[2016-05-28 03:22] LABS: Magnesium 1.6 mg/dL (1.6-2.6)
[2016-05-28 04:42] VITALS: BP 134/80; PULSE 67; RESP 16; O2SAT 95
[2016-05-28 06:07] VITALS: PULSE 65
[2016-05-28] MEDS ORDERED: Pantoprazole 40 mg ER24 Tablet PO SCH (06:30)
--- NOTE | 2016-05-28 07:28 | NUR ---
Rest/PO Intake/Activity Pt was able to rest through most of the evening shift Pt tolerated clear liquid diet with no N/V. Pt ambulated in the room to the bathroom independently with a steady gait and did not c/o dizziness or weakness.
[2016-05-28 08:59] VITALS: BP 124/87; PULSE 69; RESP 16; O2SAT 99
[2016-05-28 09:07] LABS: Hepatitis A Antibody IgM Positive (Negative); Hepatitis B Core Antibody IgM Negative (Negative)
[2016-05-28] MEDS: cefTRIAXone Inj 2,000 MG in Dextrose 5% Minibag Plus 50 ML IV SCH (09:07)
--- NOTE | 2016-05-28 09:34 | PCM.DIMED ---
Discharge Instructions Date of Service May 28, 2016 Dates of Hospitalization May 27, 2016 at 03:54 Discharge Diagnosis Discharge Diagnosis #. Upper GI bleed, present on admission. Active. -due to super superficial gastric ulcers # H.pylori infection,poa,active -please continue amoxicillin 1 g by mouth twice a day and clarithromycin 500 mg by mouth twice a day for 2 weeks. Continue Protonix 40 mg by mouth twice a day for 3 months. # Anemia requiring transfusion, due to GI bleeding, improved # UTI ,poa , active #. Elevated liver enzymes, present on admission. Unknown chronicity. - Hepatitis panel pending. #. cirrhosis visualized on CT, present on admission. #. Alcohol use disorder, present on admission. Chronic. - Discussed cessation. #. Osteoarthritis of neck Test Results Endoscopy report IMPRESSION: 1. Two superficial antral ulcers. 2. Portal gastropathy. 3. Mild to moderate esophagitis with an irregular gastroesophageal junction. RECOMMENDATIONS: 1. Avoid NSAIDs and anticoagulants. 2. Continue PPI for 12 weeks. 3. Recommend repeat EGD in 12 weeks. 4. Recommend chronic liver disease workup to rule out other etiologies for the patient's underlying cirrhosis. 5. Alcohol cessation. 6. Await biopsy results. COMPLICATIONS: None. Janet Jauregui MD 05/27/16 1326 Diet Low fat, Low Sodium Activity Limited until seen by PCP Call your provider Fever or Chills, Shortness of breath, Bleeding, Chest pain, Vomitting, Excessive diarrhea, Weakness (unilateral) Patient Instructions You were hospitalized due to upper GI bleeding due to superficial gastric ulcers which is positive for H. pylori. Please continue amoxicillin 1 g by mouth twice a day and clarithromycin 500 mg by mouth twice a day for 2 weeks . Please continue Protonix 40 mg by mouth twice a day for 3 months. Please follow -up with GI for repeat endoscopy in 3 months. You also was found to have cirrhosis of liver and portal hypertension probably due to alcohol. Please stop drinking alcohol. Hepatitis panel is pending, please follow-up results with PCP. You also had anemia which required transfusion of blood. Follow-up plan Please follow-up with PCP in 1 week. Please follow Gi Dr. jauregui in 3- 4 weeks. Follow-up Provider: Marina Fontaine PA-C Follow-up with PCP in: 1 week Provider: Janet Jauregui MD Follow-up in: 3 weeks Jer Ramirez MD May 28, 2016 09:34
[2016-05-28 10:11] VITALS: PULSE 72
[2016-05-28] MEDS ORDERED: OMEP20TA86 PO (10:23)
[2016-05-28] MEDS ORDERED: AMOX500T2 PO ×2 (10:23→10:35)
[2016-05-28] MEDS ORDERED: CLR500T PO (10:23)
[2016-05-28] MEDS ORDERED: PANT20T PO (10:35)
[2016-05-28] MEDS ORDERED: CLAR500T PO (10:35)
--- NOTE | 2016-05-28 11:37 | PCM.DC.MED ---
Discharge Summary Date of Service May 28, 2016 Dates of Hospitalization Date of Hospital Admission May 27, 2016 at 03:54 Date of Discharge: May 28, 2016 Providers: Admitting Physician: Zeenat Alonzo DO Primary Care Physician: Marina Fontaine PA-C Attending Physician: Zeenat Alonzo DO Diagnosis at Time of Discharge Diagnosis at Time of Discharge #. Upper GI bleed, present on admission. Active. -due to super superficial gastric ulcers # H.pylori infection,poa,active -please continue amoxicillin 1 g by mouth twice a day and clarithromycin 500 mg by mouth twice a day for 2 weeks. Continue Protonix 40 mg by mouth twice a day for 3 months. # Anemia requiring transfusion, due to GI bleeding, improved # UTI ,poa , active #HCV infection #. Elevated liver enzymes, present on admission. Unknown chronicity. - Hepatitis panel pending. #. cirrhosis visualized on CT, present on admission. #. Alcohol use disorder, present on admission. Chronic. - Discussed cessation. #. Osteoarthritis of neck Consultations GI Dr Oviedorusamy Procedures XRay, CTs & MRIs CONCLUSION: No acute findings. Colonic diverticulosis without evidence of acute diverticulitis. Heterogeneous nodular liver possible cirrhosis. Borderline splenomegaly. Radiologist: Elis Coelho MD 05/27/2016 - 1:35:32 AM PST Study type: Abdom CT oral contrast Interpretation / Wet Read by: Interpret - Radiologist ECG 12 Lead Sinus rhythm, Rate 80 Invasive Procedures ENDOSCOPY FINDINGS: 1. Normal appearing duodenal bulb, first and second portion. No old or fresh blood was seen on exam. 2. Normal appearing pylorus. In the antrum, at the nine o'clock and at the 3 o'clock position, there were superficial ulcers that measured approximately 3-4 mm with exudate which we were able to remove with irrigation. The ulcers were clean based. Multiple biopsies were obtained from the ulcer site. 3. The mucosa otherwise in the antrum and body of the stomach had a mosaic appearance, consistent with portal gastropathy. 4. Retroflexed views in the gastric body revealed a normal-appearing cardia and fundus. No gastric varices were appreciated. 5. Multiple random biopsies were obtained throughout the antrum and body of the stomach. 6. The GE junction was at approximately 41 cm and was irregular. There was surrounding erythema suggestive of esophagitis which appeared to be mild to moderate. The remainder of the esophagus was otherwise unremarkable. No esophageal varices were appreciated. IMPRESSION: 1. Two superficial antral ulcers. 2. Portal gastropathy. 3. Mild to moderate esophagitis with an irregular gastroesophageal junction. RECOMMENDATIONS: 1. Avoid NSAIDs and anticoagulants. 2. Continue PPI for 12 weeks. 3. Recommend repeat EGD in 12 weeks. 4. Recommend chronic liver disease workup to rule out other etiologies for the patient's underlying cirrhosis. 5. Alcohol cessation. 6. Await biopsy results. COMPLICATIONS: None. ESTIMATED BLOOD LOSS: Less than 5 mL. Janet Jauregui MD 05/27/16 1326 Brief History Patient is a 70 year old female who presents to the ED after she developed dark diarrhea, dark vomiting, and abdominal pain 3 days ago. She describes the abdominal pain as cramping in her lower abdomen, which always precedes an episode of vomiting or diarrhea. Patient was nauseated for the past 2 days, and has only been able to drink small amounts of water before vomiting. Today the patient has not vomited or had a bowel movement. The patient states that emesis and diarrhea have always been dark, but she has not noted bright red blood. Patient denies dizziness. The patient denies a history of heart burn and she has not previously had a gastric ulcer. PCP ordered labs at visit on 05/26/16, and called back last night with results of the low blood count, advising them to go to the ED for further evaluation. Patient has previously had a hysterectomy, but denies prior cholecystectomy. Patient denies any right sided pain, abdominal pain, palpitations, SOB, fevers or chills. No history of similar events in the past, does not take NSAIDs. In the ED, vitals T36.6, P88, RR16, BP143/73, 99%RA. Labs significant for Hgb 7.2 came down to 6.2, Hct 23.6 down to 20.6 during the time in ED. AST/ALT 114/ 40, Lipase 147. Na 133, K3.1. CT abd showed "No acute findings. Colonic diverticulosis without evidence of acute diverticulitis. Heterogeneous nodular liver possible cirrhosis. Borderline splenomegaly." Patient given 80mg IV pantoprazole. Transfused 2 units of PRBC due to acute H/H drop. Admitted for further evaluation and treatment. Hospital Course Alicja Shi is a 70 year old female who presents to the ED after she developed dark diarrhea, dark vomiting, and abdominal pain 3 days ago. Found to be anemic on recent labs and sent to the ED by PCP. Admitted for upper GI bleed. Hospital day 2. #. Upper GI bleed, present on admission. Active. -Due to superficial gastric ulcers. H. pylori positive. -Continue amoxicillin 1 g by mouth twice a day and clarithromycin 500 mg by mouth twice a day for 2 weeks. Continue Protonix 20 mg twice a day for 3 months. -Needs to follow with gastroenterology for repeat endoscopy in 3 months - On admission hemoglobin and hematocrit 6.3 and 20.6. - 2 units of PRBC given overnight between 05/26-05/27 - Treated with Protonix drip per protocol. - Initially treated with Octreotide drip per protocol. - H/H stable this morning at 9.8 and 30.1.. - EGD as above with superficial gastric ulcers. -Treated with Ceftriaxone started 05/27 for prophylaxis. #Anemia requiring transfusion due to GI bleeding -Hemoglobin responded appropriately # HCV infection,new diagnosis -Will send HCV genotype and viral load -Advised to follow with for treatment of HCV #UTI,poa, acute -Urine culture growing> 100,000 gram-negative -We discharged on amoxicillin and clarithromycin #. Compensated cirrhosis , present on admission. new Diagnosis -Due to HCV infection - Child-Nayak score of 6, Class A, MELD score of 17, Discriminant Function score of 13.8 with good prognosis, no steroid needed - Will need outpatient follow-up. -Advised to avoid alcohol and Tylenol. Advised to follow-up with GI and PCP for treatment of HCV #. Mildly elevated lipase, present on admission. - On admission lipase 147. - Most likely due to chronic pancreatitis with alcohol use. - Patient denies abdominal pain. #. Elevated liver enzymes, present on admission. Unknown chronicity. -Due to HCV and HAV infection. Alcohol also contributing - Hepatitis panel HCv and HAV positive #. Hypokalemia, present on admission. Resolved #. Alcohol use disorder, present on admission. Chronic. - Patient states she has not been drinking her usual 3 glasses of wine for the past 2-3 weeks, serum alcohol level <10, CIWA deemed not necessary at this time. - Discussed cessation. - Monitor for alcohol withdrawal. #. Osteoarthritis of neck - Patient does not take any medication for this PRNs - avoid APAP - Bowel regimen as needed - Antiemetic as needed Disposition: Discharge home Condition on discharge stable Advised follow-up with gastroenterology for cirrhosis and HCV infection Exam Vital Signs (Last) Date Time Temp Pulse Resp B/P Pulse Ox O2 Delivery O2 Flow Rate FiO2 05/28/16 10:11 72 05/28/16 08:59 36.6 16 124/87 99 Room Air 05/27/16 13:21 4 Exam GEN: Alert and oriented x3, NAD, appears younger than stated age HEENT: NC/AT, PERRL, EOMI, icteric sclera, moist mucous membranes, poor dentition Neck: Supple with full ROM CV: RRR, no murmurs, rubs or gallops, peripheral pulses intact and NL Lungs: CTAB, normal breath sounds bilaterally Abd: soft, non-tender, no organomegaly, no fluid wave, no spider angiomas Ext: no edema, cyanosis, or clubbing, no asterixis Skin: no jaundice or redness of palms, no ecchymosis Neuro: CN II-XII grossly intact, no focal deficit Psych: Normal mood and affect, normal speech Test 05/26/16 23:15 05/26/16 23:25 05/27/16 05:15 05/28/16 02:45 Urine Color Dark yellow (YELLOW) Urine Appearance Hazy (CLEAR,HAZY) Urine pH 6.0 (5.0-8.0) Urine Specific [place] 1.010 (1.003-1.035) Urine Protein Negativemg/dL (NEG,TRACE) Urine Glucose (UA) Negativemg/dL (NEGATIVE) Urine Ketones Tracemg/dL (NEGATIVE) Urine Occult Blood Negative (NEGATIVE) Urine Nitrite Negative (NEGATIVE) Urine Bilirubin Small (NEGATIVE) Urine Ictotest Positive (Negative) Urine Urobilinogen 2.0mg/dL (NORMAL) Urine Leukocyte Esterase Moderate (NEGATIVE) Urine RBC 0-2/hpf (0-2) Urine WBC 6-10/hpf (0-5) Urine Epithelial Cells Moderate/hpf (NONE-MOD) Urine Crystals None seen (NONE SEEN) Urine Bacteria Few/hpf (NONE-FEW) Urine Hyaline Casts None/lpf (NONE) Urine Granular Casts None seen (NONE SEEN) Urine Waxy Casts None seen (NONE SEEN) Urine Red Blood Cell Casts None seen (NONE SEEN) Urine White Blood Cell Casts None seen (NONE SEEN) Urine Mucus None seen (None Seen) Urine Trichomonas None seen (NONE SEEN) Urine Yeast None (NONE SEEN) Urine Culture Reflexed Indicated Lactic Acid Level 1.9mmol/L (0.4-2.0) Lipase 147U/L (13-60) Acetaminophen Level < 15.0ug/mL Rx (10-25) Alcohol, Quantitative < 10mg/dL (0-10) Phosphorus Level 5.1mg/dL (2.5-4.9) Hepatitis A IgM Antibody Positive (Negative) Hepatitis B Surface Antigen Negative (Negative) Hepatitis B Core IgM Antibody Negative (Negative) Hepatitis C Antibody >11.0s/co ratio Hepatitis C Antibody Comment Comment (.) White Blood Count 3.2th/mm3 (3.8-10.1) Red Blood Count 3.64mil/mm3 (3.90-5.20) Hemoglobin 9.5g/dL (12.0-15.6) Hematocrit 30.0% (35.0-46.0) Mean Corpuscular Volume 82.4fL (81-100) Mean Corpuscular Hemoglobin 26.1pg (27.0-35.0) Mean Corpuscular Hemoglobin Concent 31.7% (32.0-37.0) Red Cell Distribution Width 17.3% (12.3-15.4) Platelet Count 152bil/L (150-400) Neutrophils (%) (Auto) 44.1% (40-74) Lymphocytes (%) (Auto) 35.7% (14-46) Monocytes (%) (Auto) 17.1% (4-12) Eosinophils (%) (Auto) 1.9% (0-5) Basophils (%) (Auto) 1.2% (0-3) Prothrombin Time 15.5sec (8.1-12.5) Prothromb Time International Ratio 1.44ratio Sodium Level 136mEq/L (134-144) Potassium Level 3.5mEq/L (3.5-5.2) Chloride Level 100mEq/L (97-108) Carbon Dioxide Level 25mmol/L (18-29) Blood Urea Nitrogen 10mg/dL (8-27) Creatinine 0.69mg/dL (0.57-1.00) Estimat Glomerular Filtration Rate 121mL/min (>59) Glucose Level 96mg/dL (60-99) Calcium Level 8.3mg/dL (8.5-10.1) Magnesium Level 1.6mg/dL (1.6-2.6) Total Bilirubin 3.4mg/dL (0.0-1.2) Aspartate Amino Transf (AST/SGOT) 115U/L (0-50) Alanine Aminotransferase (ALT/SGPT) 44U/L (0-32) Alkaline Phosphatase 58U/L (25-165) Total Protein 6.4g/dL (6.4-8.4) Albumin 3.1g/dL (3.4-5.0) Discharge Medications Discharge Medications Amoxicillin (Amoxicillin) 500 Mg Tablet 1,000 MG PO BID Prescribed by: FAUZIA VARGHESE MD Clarithromycin (Clarithromycin) 500 Mg Tablet 500 MG PO BID Prescribed by: FAUZIA VARGHESE MD Pantoprazole DR (Protonix) 20 Mg Tablet 20 MG PO BID Prescribed by: FAUZIA VARGHESE MD Miscellaneous Medications No Historical Medication (No Historical Medication) Ea (Reported) Followup Plan Disposition: Home Follow-up plan Please follow-up with PCP in 1 week. Please follow Gi Dr. jauregui in 3- 4 weeks. Discharge Diet: Low fat, Low Sodium Discharge Activity: Limited until seen by PCP Patient Instructions You were hospitalized due to upper GI bleeding due to superficial gastric ulcers which is positive for H. pylori. Please continue amoxicillin 1 g by mouth twice a day and clarithromycin 500 mg by mouth twice a day for 2 weeks . Please continue Protonix 40 mg by mouth twice a day for 3 months. Please follow -up with GI for repeat endoscopy in 3 months. You also was found to have cirrhosis of liver and portal hypertension due to HCV infection. Please stop drinking alcohol. Please follow-up with PCP and Gi Dr Jauregui for treatment of HCV and follow-up of cirrhosis. You also had anemia which required transfusion of blood. Follow-up Provider: Marina Fontaine PA-C Follow-up with PCP in: 1 week Provider: Janet Jauregui MD Follow-up in: 2 weeks Time spent > 40 minutes coordinating discharge copies to: Janet Jauregui MD; Marina Fontaine PA-C, Melaku MD May 28, 2016 11:37
[2016-05-28 13:00] VITALS: BP 135/76; PULSE 70; O2SAT 98
--- NOTE | 2016-05-28 14:28 | PCM.PNMED ---
Subjective Date of Service May 28, 2016 Subjective she reports no BM, nausea, vomiting overnight. She is tolerating PO Exam Vital Signs Vital Sign - Last Date Time Temp Pulse Resp B/P Pulse Ox O2 Delivery O2 Flow Rate FiO2 05/28/16 13:00 36.8 70 135/76 98 Room Air 05/28/16 08:59 16 05/27/16 13:21 4 Intake and Output 05/27/16 05/27/16 05/28/16 Cumulative From/Thru 15:00 23:00 07:00 05/26/16 22:14 - 05/28/16 06:06 Intake Total 300 ml 786 ml 800 ml 2886 ml Output Total 1000 ml 2150 ml 3150 ml Balance 300 ml -214 ml -1350 ml -264 ml Intake Oral 320 ml 800 ml 1120 ml IV Total 300 ml 466 ml 1766 ml Output Urine Total 1000 ml 2150 ml 3150 ml # Voids 1 1 Exam GEN- oriented and appropriate HEENT- mild icterus RESP-clear bilaterally CVS-RRR Abdomen-benign ext- no edema Lab and Diagnostics Result Diagram: 05/28/16 0245 05/28/16 0245 X-Rays, CTs and MRIs CONCLUSION: No acute findings. Colonic diverticulosis without evidence of acute diverticulitis. Heterogeneous nodular liver possible cirrhosis. Borderline splenomegaly. Radiologist: Elis Coelho MD 05/27/2016 - 1:35:32 AM PST Study type: Abdom CT oral contrast Interpretation / Wet Read by: Interpret - Radiologist 12-lead ECG Sinus rhythm, Rate 80 Assessment & Plan Gastric Ulcers secondary to H pylori -complete protonix 40mg BID, clarithromycin 500mg BID and amoxicillin 1000 mg BID for 2 weeks -then continue protonix 40mg daily for total of 8 weeks -Repeat EGD in 8-12 weeks to document ulcer healing Cirrhosis(Meld 16) -suspect combination of ETOH abuse and possibly Chronic Hep C as Hep C ab positive -confirm Chronic Hep C with viral load and genotype testing -ETOH cessation encouraged -Liver imaging every 6 months -EGD yearly for variceal screening Anemia Normocytic -secondary to gastric ulcers -recommend colonoscopy as outpatient Recommend follow up with me in GI clinic in 2-4 weeks GI Prophylaxis: Proton Pump Inhibitor (Protonix drip) VTE Prophylaxis: SCDs, Other (GI bleed) VTE Mechanical Devices: Intermittant Pneumatic CD Resuscitation Status: CPR: Attempt Resuscitation Janet Jauregui MD May 28, 2016 14:28
--- NOTE | 2016-05-28 15:30 | NUR ---
Discharge She discharged at 1530. Her two IVs and telemetry were discontinued intact. Her discharge paperwork (instructions, care notes, and prescriptions) were explained and then given to her and her . Was notified by the that her pharmacy does not open until tomorrow. Called Dr. Pat who wrote a prescription for 1 tablet of each medication so that they could stop by a different pharmacy and parts picker her doses for tonight and then get her full prescriptions tomorrow at her regular pharmacy. They were very appreciative and said they received excellent care here. She walked out to the car with her .
--- NOTE | 2016-05-28 16:55 | CONS ---
[address] [address] CONSULTATION REPORT PATIENT: SERG BRUSH : 1945 MR#: [id number] ADMIT: 05/27/2016 JOB ID: [id number] DATE OF SERVICE: PHYSICIAN REQUESTING CONSULTATION: The emergency department physician. REASON FOR CONSULTATION: Melena and coffee-ground emesis. HISTORY OF PRESENTING ILLNESS: The patient is a 70-year-old woman, who has a longstanding history of alcohol abuse. She drinks approximately 2-3 glasses of wine daily and has done this for at least three decades. She was apparently in her normal state of health up until three days prior to admission when she began developing periumbilical pain. This was associated with passage of dark tarry stools, nausea and coffee-ground emesis. She tried to manage this at home by placing herself on a clear liquid diet. However, as her symptoms did not improve, she presented to the hospital. She denied any associated fevers, chills, sweats. She reports no symptoms like this in the past. On admission, she was noted to be anemic with a hemoglobin of 9.9, with hematocrit of 30.6. Her MCV was normal at 81.8. She was then admitted to the hospital. She was then placed on Protonix drip along with octreotide. Overnight, her hemoglobin has remained stable. Upon further interview with her, she denies any NSAID use. She denies any history of prior upper endoscopy. She does report having had a colonoscopy within the last 4-5 years at the [facility] and was told that she had colon polyps and would likely need another colonoscopy in five years. She has no known history of cirrhosis. She did undergo imaging testing here which revealed a nodular- appearing liver, as well as mild splenomegaly and prominent venous varices at the splenic hilum. Upon further questioning, regarding cirrhosis, she states that she does have a family history of cirrhosis. An uncle as well as a brother had cirrhosis but both were alcoholics, she states. PAST MEDICAL HISTORY: Significant for osteoarthritis in the neck. PAST SURGICAL HISTORY: Includes hysterectomy and bone spur of the heel. FAMILY HISTORY: Significant for father with emphysema and mother with type 2 diabetes, and a brother who from cirrhosis. SOCIAL HISTORY: She does drink 2-3 glasses of wine daily and has done so for at least the last three decades. She was a former smoker but quit approximately five years ago. She does have a history of intravenous drug use in her 20s and 30s. HOME MEDICATIONS: None. She has no known drug allergies. REVIEW OF SYSTEMS: Her 10-point review of systems is otherwise negative, except as mentioned in the HPI. PHYSICAL EXAMINATION: Her temperature was 36.9. Her pulse was 93. Blood pressure was 139/78, respiratory rate is 16. O2 saturation is 93% on room air. Generally, she is in no apparent distress. She does appear to be mildly icteric, but is oriented to person, place, and time, and answers questions appropriately. HEENT: Mild icterus and mild pallor. Oropharynx is clear. Chest exam is clear to auscultation bilaterally. Cardiovascular exam: S1 and S2 heard. Abdomen: Soft, nontender, nondistended. I do not appreciate any hepatosplenomegaly. Extremities: Without edema. Her laboratory data as per the EMR and her imaging data as discussed above. ASSESSMENT/PLAN: 1. A 70-year-old woman with newly diagnosed cirrhosis by imaging, presenting with hematemesis. The differential for hematemesis may be secondary to esophageal or gastric varices versus peptic ulcer disease, versus esophagitis, versus gastritis, and less likely, neoplasm. I did discuss with her proceeding with EGD for further evaluation, and she was agreeable to this. In the meantime, I would continue Protonix and octreotide drip. Keep n.p.o. and continue to follow H and H and transfuse blood products as needed. 2. Cirrhosis. Recommend chronic liver disease workup to rule out other etiologies for her liver disease. However, I suspect this may be alcohol related. Would avoid any hepatotoxic medications. 3. Anemia. She reports having had a colonoscopy 4-5 years ago at the [facility] and was noted to have polyps. We will attempt to obtain records of her colonoscopy to determine when her next colonoscopy should be. If upper endoscopy is normal, this may warrant colonoscopy to further evaluate her anemia. Thank you for allowing me to participate in this patient's care. If you have any further questions, please do not hesitate to contact me. [facility]
--- NOTE | 2016-05-28 18:50 | CONS ---
[address] [address] CONSULTATION REPORT PATIENT: SERG BRUSH : 1945 MR#: [id number] ADMIT: 05/27/2016 JOB ID: [id number] DATE OF SERVICE: REASON FOR CONSULTATION: The patient has been having melena and episode of hematemesis. HISTORY OF PRESENTING ILLNESS: The patient is a very pleasant 70-year-old woman who has a longstanding history of alcohol abuse. She drinks several glasses of wine daily and has done this for at least the last three decades. She was in her usual state of health up until three days ago when she developed which she describes as periumbilical pain which was associated with passage of dark tarry stools. She had also begun having nausea and had several episodes of what she describes as coffee-ground emesis. As her symptoms did not improve over three days despite trying a clear liquid diet, she presented to the emergency department. On admission here, INCOMPLETE DICTATION: Dictation ends here.
--- NOTE | 2016-05-30 11:12 | PATH ---
SURGICAL PATHOLOGY Attending Physician:Missael López CASE STATUS: Signed Out PATIENT NAME: SERG BRUSH PID: [id number] : 1945 DATE COLLECTED:05/27/2016 00:00 SPECIMEN: 1: Stomach, Antrum, Biopsy 2: Gastric, Biopsy CLINICAL HISTORY: 1). ANTRAL ULCER 2). RANDOM GASTRIC BIOPSIES FINAL DIAGNOSIS: 1.ANTRAL BIOPSY: MODERATE CHRONIC GASTRITIS, FOCALLY ACTIVE WITH AREAS OF MUCOSAL EROSION. Immunohistochemistry for Helicobacter pylori pending, to be reported by addendum. Negative for intestinal metaplasia. Negative for dysplasia and malignancy. 2.RANDOM GASTRIC BIOPSY: DIFFUSE MODERATE CHRONIC GASTRITIS INVOLVING FUNDIC MUCOSA, FOCALLY ACTIVE. Immunohistochemistry for Helicobacter pylori pending, to be reported by addendum. Negative for intestinal metaplasia. Negative for dysplasia and malignancy. ICD10 code K29.70 GROSS DESCRIPTION: The specimen is received in two formalin filled containers labeled with the patient's name. 1). The specimen is sublabeled "antral ulcer" and consists of a 0.3 x 0.3 x 0.3 CM portion of tissue which is entirely submitted in cassette 1A. 2). The specimen is sublabeled "random gastric" and consists of a 0.3 x 0.3 x 0.2 CM portion of tissue which is entirely submitted in cassette 2A. 05/29/2016 [facility] MICRO DESCRIPTION: See diagnosis. ICD-9 CODES: CPT CODES: 1: 58332, 40645 2: 54048, 46138 PROCEDURE/ADDENDA: Immunohistochemistry SPI Interpretation {Not Entered} Results-Comments Immunohistochemistry Results 1.Antral Ulcer: Positive for Helicobacter pylori by immunohistochemistry. 2.Random Gastric Biopsies: Positive for Helicobacter pylori by immunohistochemistry. This test was developed and its performance characteristics determined by [employer]. It has not been cleared or approved by the U. S. Food and Drug Administration. The FDA has determined that such clearance or approval is not necessary. This test is used for clinical purposes. It should not be regarded as investigational or for research. Electronically Signed Out Gordon Riddle MD Electronically Signed Out Gordon Riddle MD [facility] [address] [place] [id number] Technical component performed at [facility], [address], [place], [address]
[2016-08-17] MEDS ORDERED: MULT-666 PO (08:35)
== END 2016-05-28 15:30 | disposition home or self-care (01) | DRG 378 ==
LOC: SED 22:12 → PCC 05-27 03:54
PROVIDERS: ADMIT Internal Medicine; ATTEND Internal Medicine
PROC: 30233N1 Transfusion of Nonautologous Red Blood Cells into Peripheral Vein, Percutaneous Approach (ICD-10-PCS; 2016-05-26)
PROC: 0DB68ZX Excision of Stomach, Via Natural or Artificial Opening Endoscopic, Diagnostic (ICD-10-PCS; principal; 2016-05-27 13:00)
DX: K25.4 Chronic or unspecified gastric ulcer with hemorrhage (principal); E87.2 Acidosis; N39.0 Urinary tract infection, site not specified; K76.6 Portal hypertension; K70.30 Alcoholic cirrhosis of liver without ascites; Z87.891 Personal history of nicotine dependence; E87.6 Hypokalemia; F10.10 Alcohol abuse, uncomplicated; B18.2 Chronic viral hepatitis C; D64.9 Anemia, unspecified; K92.0 Hematemesis; B96.81 Helicobacter pylori [H. pylori] as the cause of diseases classified elsewhere

== ENCOUNTER 2016-08-18 11:38 | Day surgery (SDC) | payer MEDICARE, OTHER ==
[~2016-08-18] VITALS: Ht 165.1 cm; Wt 65.0 kg
[~2016-08-18 11:38] MED LIST changes: +0.9% Sodium Chloride 1,000 ML IV SCH; +MULT-666 PO; -NOMED; +PANT20T PO; +Sodium Chloride LOK Flush 10 mL Syringe IV PRN; +fentaNYL-PF 50 mCg/mL 2 mL Inj IVPUSH PRN
[2016-08-18 12:55] VITALS: BP 131/71; PULSE 70; RESP 16; O2SAT 100
[2016-08-18 14:30] VITALS: BP 144/77; PULSE 83; RESP 16; O2SAT 99
[2016-08-18 14:45] VITALS: BP 142/73; PULSE 75; RESP 16; O2SAT 99
[2016-08-18 14:51] VITALS: BP 139/74; PULSE 76; RESP 16; O2SAT 99
--- NOTE | 2016-08-18 17:27 | ENDO ---
[address] [address] ENDOSCOPY PROCEDURE PATIENT: SERG BRUSH : 1945 MR#: [id number] ADMIT: 08/18/2016 JOB ID: [id number] PROCEDURE: Esophagogastroduodenoscopy. INDICATION: Chronic anemia. The patient's ASA classification, Mallampati score, and medications as per anesthesia report. INSTRUMENT USED: GIF-H190. INCOMPLETE DICTATION: Dictation ends here.
--- NOTE | 2016-08-18 17:37 | ENDO ---
[address] [address] ENDOSCOPY PROCEDURE PATIENT: SERG BRUSH : 1945 MR#: [id number] ADMIT: 08/18/2016 JOB ID: [id number] PROCEDURE: Esophagogastroduodenoscopy. INDICATION: A patient with a history of antral ulcers. The patient's ASA classification is 2. Mallampati score is 2. MEDICATIONS: Versed at 4 mg, fentanyl 100 mcg. INSTRUMENT USED: GIF-H180J PROCEDURE DETAILS: After informed consent was obtained, the patient was brought to the GI suite, where she was placed on oxygen via nasal cannula and monitored with continuous pulse oximeter, telemetry, and blood pressure monitoring. A time-out was performed. Then, she was placed in a left lateral decubitus position and medications were administered for sedation. A bite block was placed. Standard EGD scope was inserted through the bite block and advanced under direct visualization to second portion of duodenum without difficulty. FINDINGS: 1. Normal appearing duodenal bulb, first and second portion. 2. In the antrum, there were thickened folds noted. Multiple biopsies were obtained. 3. The mucosa had a mosaic appearance in the antrum and body of stomach suggestive of portal gastropathy. 4. Retroflexed views in the gastric body revealed a normal-appearing cardia and fundus. 5. Normal appearing GE junction. The Z-line was slightly irregular. Multiple biopsies were obtained. 6. Remainder of the esophagus was otherwise unremarkable. IMPRESSION: 1. Thickened folds in the antrum. 2. Portal gastropathy. RECOMMENDATIONS: 1. Await biopsy results. 2. Proceed to colonoscopy. COMPLICATIONS: None. ESTIMATED BLOOD LOSS: Less than 5 mL. cc: Primary care provider
--- NOTE | 2016-08-18 17:40 | ENDO ---
[address] [address] ENDOSCOPY PROCEDURE PATIENT: SERG BRUSH : 1945 MR#: [id number] ADMIT: 08/18/2016 JOB ID: [id number] PROCEDURE PERFORMED: Colonoscopy. INDICATION: Colon cancer screening. Please see above for ASA classification, Mallampati score, and medications. INSTRUMENT USED: PCF-H180AL. PREPARATION QUALITY: Fair. PROCEDURE DETAILS: After completion of the EGD exam, the patient was turned and then a digital rectal exam was performed which was unremarkable. The colonoscope was then inserted into the rectum and advanced under direct visualization to the cecum, which was identified by the presence of the ileocecal valve and appendiceal orifice. Once the cecum was reached, the colonoscope was withdrawn back to the rectum. Mucosa and lumen were examined. In the rectum, retroflexion was performed. Following retroflexion, remaining air in the rectum was suctioned, and procedure was completed. FINDINGS: 1. In the sigmoid colon there was a diminutive polyp that was removed with cold biopsy forceps. 2. Scattered diverticula were seen in the left side of the colon. IMPRESSION: 1. Sigmoid colon polyp. 2. Left-sided diverticulosis. RECOMMENDATIONS: 1. Follow up in GI clinic. 2. Repeat colonoscopy pending polyp pathology results. COMPLICATIONS: None. ESTIMATED BLOOD LOSS: Less than 5 mL.
--- NOTE | 2016-08-21 11:40 | PATH ---
SURGICAL PATHOLOGY Attending Physician:Missael López CASE STATUS: Signed Out PATIENT NAME: SERG BRUSH PID: [id number] : 1945 DATE COLLECTED:08/18/2016 00:00 SPECIMEN: 1: Stomach, Antrum, Biopsy 2: Esophagus, Biopsy 3: Colon, Biopsy CLINICAL HISTORY: [id number] RANDOM ANTRAL BIOPSIES 2). DISTAL ESOPHAGUS 3). SIGMOID COLON POLYP FINAL DIAGNOSIS: 1.RANDOM GASTRIC ANTRAL BIOPSIES: GASTRIC ANTRUM WITH MILD CHRONIC GASTRITIS. Negative for Helicobacter organisms. Negative for intestinal metaplasia. No evidence of dysplasia or malignancy. 2.DISTAL ESOPHAGUS, BIOPSY: GASTRIC GLANDULAR MUCOSA WITH MILD CHRONIC INFLAMMATION. Negative for intestinal metaplasia. No evidence of malignancy or dysplasia. 3.SIGMOID COLON POLYP: HYPERPLASTIC POLYP. ICD10 CODE K29.70 D12.6 GROSS DESCRIPTION: Received are three formalin-filled containers, each labeled with the patient' s name. 1. Received in formalin, labeled with the patient' s name and "random antrum", is one fragment of pacheco, soft tissue measuring 0.3 x 0.2 x 0.2 cm. The fragment is totally submitted in cassette 1A. 2. Received in formalin, labeled with the patient' s name and "distal esophagus", is one fragment of pacheco, soft tissue measuring 0.2 x 0.1 x 0.1 cm. The fragment is totally submitted in cassette 2A. 3. Received in formalin, labeled with the patient' s name and "sigmoid polyp", is one fragment of pacheco, soft tissue measuring 0.2 x 0.2 x 0.1 cm. The fragment is totally submitted in cassette 3A. ([id number]) MICRO DESCRIPTION: See diagnosis. ICD-9 CODES: CPT CODES: 1: 60242 2: 22580 3: 53969 Electronically Signed Out Jeramie Huang MD [facility] [address], [place] [address] Technical component performed at [facility], [address], [place], [address]
== END 2016-08-18 23:59 | disposition home or self-care (01) ==
LOC: END 11:38
PROVIDERS: ATTEND Internal Medicine Gastroenterology
DX: Z12.11 Encounter for screening for malignant neoplasm of colon (principal); K63.5 Polyp of colon; K57.30 Diverticulosis of large intestine without perforation or abscess without bleeding; K29.50 Unspecified chronic gastritis without bleeding; Z87.11 Personal history of peptic ulcer disease; B18.2 Chronic viral hepatitis C; K74.60 Unspecified cirrhosis of liver
CPT/HCPCS: 43239; 45380; 99153; G0500; J7030